=== PATIENT | male | born 1985 | race Caucasian/White ===

== ENCOUNTER 2022-02-21 16:49 | Emergency (ER) | payer OTHER ==
[2022-02-21 19:27] LABS: CREATININE 1.04 mg/dL (0.67-1.17)
[2022-02-21 19:47] LABS: BILIRUBIN NEGATIVE (NEGATIVE); BLOOD NEGATIVE Ery/uL (NEGATIVE); CLARITY CLEAR (CLEAR); COLOR YELLOW (YELLOW); GLUCOSE (U) NORMAL (NORMAL); LEUKOCYTES NEGATIVE Leu/uL (NEGATIVE); NITRITE NEGATIVE (NEGATIVE); PROTEIN TRACE (LOW) mg/dL (NEGATIVE); SPECIFIC GRAVITY >=1.030 (1.001-1.030); UROBILINOGEN 0.2 mg/dL (0.2-1.0)
[2022-02-21 19:53] LABS: AMPHETAMINES NEGATIVE (NEGATIVE); BARBITURATES NEGATIVE (NEGATIVE); ECSTASY (MDMA) NEGATIVE (NEGATIVE); MARIJUANA (THC) POSITIVE (NEGATIVE); METHADONE NEGATIVE (NEGATIVE); OPIATES NEGATIVE (NEGATIVE); OXYCODONE NEGATIVE (NEGATIVE)
[2022-02-21 20:08] LABS: BASOPHIL 0.4 % (0-2); EOSINOPHIL 0.4 % (0-5); HCT 49.1 % (42.0-52.0); HGB 15.9 g/dl (13.2-18.0); LYMPHOCYTE 13.7 % (15-48); MCH 30.2 pg (25.0-31.0); MCHC 32.4 g/dL (32.0-36.0); MCV 93.3 fL (78.0-100.0); MONOCYTE 8.3 % (0-12); MPV 9.6 fL (6.0-9.5); NEUTROPHIL 76.7 % (41-80); NRBC 0; PLT 358 K/uL (150-400); RBC 5.26 M/uL (4.70-6.00); RDW 14.3 % (11.5-14.0); WBC 16.8 K/uL (4.0-10.5)
== END 2022-02-21 21:20 | disposition home or self-care (01) ==
LOC: FER 16:49
PROVIDERS: Nurse Practitioner Family
DX: F11.10 Opioid abuse, uncomplicated (principal); F17.210 Nicotine dependence, cigarettes, uncomplicated; Z28.310 Unvaccinated for COVID-19
CPT/HCPCS: 36415; 80048; 80305; 81003; 85025; 99284; J7030

== ENCOUNTER 2022-03-24 16:27 | Emergency (ER) | payer OTHER ==
[2022-03-24 17:31] LABS: BASOPHIL 0.7 % (0-2); EOSINOPHIL 2.9 % (0-5); HCT 40.7 % (42.0-52.0); HGB 13.7 g/dl (13.2-18.0); MCH 31.2 pg (25.0-31.0); MCHC 33.7 g/dL (32.0-36.0); MCV 92.7 fL (78.0-100.0); MONOCYTE 10.7 % (0-12); MPV 9.2 fL (6.0-9.5); NEUTROPHIL 65.3 % (41-80); NRBC 0; PLT 269 K/uL (150-400); RBC 4.39 M/uL (4.70-6.00); RDW 13.2 % (11.5-14.0)
[2022-03-24 18:10] LABS: BUN/CREAT RATIO (CALC) 17.3 RATIO; CREATININE 0.81 mg/dL (0.67-1.17); POTASSIUM 3.5 mmol/L (3.5-5.1)
== END 2022-03-24 18:19 | disposition home or self-care (01) ==
LOC: FER 16:27
PROVIDERS: Nurse Practitioner Family
DX: T40.1X1A Poisoning by heroin, accidental (unintentional), initial encounter (principal); Z28.310 Unvaccinated for COVID-19
CPT/HCPCS: 36415; 80048; 85025; 99284